=== PATIENT | female | born 1985 | race African-American/Black ===

== ENCOUNTER 2018-10-13 12:54 | Emergency (ER) | payer OTHER ==
[~2018-10-13] VITALS: Ht 170.2 cm; Wt 92.5 kg
[2018-10-13] MEDS ORDERED: ZOLOFT50 MG PO (13:02)
[2018-10-13] MEDS ORDERED: HYDROXYZINE HCL25 M1 PO (13:03)
[2018-10-13 14:01] LABS: ABSOLUTE EOSINOPHILS 0.1 thou/uL (0.0-0.7); ABSOLUTE LYMPHOCYTES 1.9 thou/uL (0.8-5.3); ABSOLUTE NEUTROPHILS 5.3 thou/uL (1.6-8.1); BASOPHILS 0.6 %; HEMATOCRIT 42.7 % (37.0-47.0); HEMOGLOBIN 14.7 gm/dL (12.0-15.0); LYMPHOCYTES 22.7 %; MCH 32.3 pg (26.0-34.0); MCHC 34.3 g/dL (28.0-37.0); MCV 94.1 fL (80.0-100.0); MONOCYTES 12.5 %; MPV 7.2 fl. (7.2-11.1); NUCLEATED RBCS 0 /100WBC; POLYS 63.2 %; RBC 4.54 mil/uL (4.20-5.00); RDW-CV 14.3 % (10.5-14.5); WBC 8.4 thou/uL (4.0-11.0)
[2018-10-13 14:23] LABS: ANION GAP 18 mmol/L (7-16); BUN 9 mg/dL (7-18); CHLORIDE 103 mmol/L (98-107); CO2 17 mmol/L (21-32); CREATININE 0.8 mg/dL (0.6-1.3); GLUCOSE 90 mg/dL (70-99); POTASSIUM 4.6 mmol/L (3.5-5.1); SODIUM 138 mmol/L (136-145)
[2018-10-13 14:33] LABS: ALBUMIN 3.9 g/dL (3.4-5.0); ALKALINE PHOSPHATASE 70 U/L (46-116); SGOT 25 U/L (15-37); SGPT 18 U/L (30-65); TOTAL BILIRUBIN 0.9 mg/dL (<0.1-1.0); TOTAL PROTEIN 7.3 g/dL (6.4-8.2); TROPONIN-I LEVEL <0.06 ng/mL (<0.06)
[2018-10-13 14:38] LABS: LARGE PLATELETS RARE; PLATELET COUNT* 295 thou/uL (150-400)
[2018-10-13 14:39] LABS: PLATELET ESTIMATE ADEQUATE
[2018-10-13] MEDS ORDERED: IBUPROFEN 800800 M1 PO (15:41)
[2018-10-13 16:52] VITALS: BP 138/93
--- NOTE | 2018-10-14 15:36 | EKG ---
[place] [address] ELECTROCARDIOGRAM REPORT Name: ANNMARIE FELDER Room: [facility]#: [id number] Admission: 10/13/18 Attend Phys: Discharge: 10/13/18 Date of : 81 Report #: [id number] THIS REPORT FOR: //name// [facility] ED Test Date: 2018-10-13 Test Time: 13:52:55 Pat Name: ANNMARIE FELDER Department: Room: Gender: F [employer] Development Engineer: : [id number] Requested By: Ebony Mosqueda Order Number: [id number] MD: Jason Yoon Measurements Intervals [place] Rate: 114 P: 43 OK: 102 QRS: 57 QRSD: 120 T: 45 QT: 369 QTc: 509 Interpretive Statements Sinus tachycardia Consider right atrial enlargement Nonspecific intraventricular conduction delay Artifact in lead(s) I,II,III,aVL,aVF,V1,V2,V3,V4,V5,V6 No previous ECG available for comparison Electronically Signed On 10-14-2018 15:36:29 CDT by Jason Yoon [email or web address] <ELECTRONICALLY SIGNED> By: Jason Yoon MD, [facility] 10/14/18 1536 1352 1352 Jason Yoon MD, [facility] /EPI
== END 2018-10-13 16:52 ==
LOC: M.ERS 12:54
PROVIDERS: Nurse Practitioner Family
DX: R07.89 Other chest pain (principal); R29.0 Tetany; R06.4 Hyperventilation; M25.571 Pain in right ankle and joints of right foot; F41.9 Anxiety disorder, unspecified; F32.9 Major depressive disorder, single episode, unspecified